=== PATIENT | male | born 1970 | race Caucasian/White ===

== ENCOUNTER 2023-03-01 16:03 | Inpatient (IN) ==
[2023-03-01] MEDS ORDERED: ASPIRIN CHEW 324 MG PO STA (16:33)
--- NOTE | 2023-03-01 16:44 | XRay Report ---
XR chest 1V portable CLINICAL HISTORY: Chest pain, nonspecific COMPARISON STUDY: No previous studies for comparison. FINDINGS: Lung volumes are normal. No consolidation is identified. A 9 mm nodular density projects ov er the right lower lung. There is no pneumothorax or pleural effusion. Cardiac size is normal. Medias tinal contours are normal. There is no evidence for pulmonary edema. IMPRESSION: 1. No acute cardiopulmonary findings. 2. Equivocal 9 mm right lower lung nodule. Nonemergent chest CT is recommended. ACT 112: Positive. There are findings on this exam that require communication between the performing entity and the patient following Patient Test Result Information Act ([place] Act 112) guidelines. Electronically signed by: Anurag Wahl M.D. 03/01/2023 4:42 PM
[2023-03-01 16:47] LABS: Basophils # (auto) 0.03 K/uL (0-0.2); Basophils % (auto) 0.3 %; Eosinophils # (auto) 0.12 K/uL (0-0.50); Eosinophils % (auto) 1.1 %; Hematocrit (blood only) 33.1 % (42.0-52.0); Hemoglobin 12.2 g/dl (14.0-18.0); Immature Granulocytes # (auto) 0.05 K/uL (0.01-0.20); Immature Granulocytes % (auto) 0.5 %; Lymphocytes # (auto) 0.97 K/uL (1.2-3.4); Lymphocytes % (auto) 8.8 %; Mean Corpuscular Hemoglobin 30.5 pg (25.0-34.0); Mean Corpuscular Hgb Conc 36.9 g/dL (32.0-36.0); Mean Corpuscular Volume 82.8 fL (80.0-100.0); Mean Platelet Volume 10.5 fL (9.4-12.4); Monocytes # (auto) 0.64 K/uL (0.11-0.59); Monocytes % (auto) 5.8 %; Neutrophils # (auto) 9.23 K/uL (1.40-6.50); Neutrophils % (auto) 83.5 %; Platelet Count 194 K/uL (130-400); RDW Coefficient of Variation 11.9 % (11.5-14.5); RDW Standard Deviation 35.7 fL (36.4-46.3); White Blood Count 11.04 K/ul (4.8-10.8)
[2023-03-01 17:04] LABS: Anion Gap 11 (3-11); BUN Creatinine Ratio 18.3 (10-20); Blood Urea Nitrogen 26 mg/dl (6-23); Carbon Dioxide 21 mmol/L (21-32); Chloride 93 mmol/L (98-107); Est GFR (African American) 64.9 ml/min; Glucose 261 mg/dl (70-99(Fasting)); Lipase 49 U/L (11-82); Potassium 4.2 mmol/L (3.5-5.1); Sodium 125 mmol/L (136-145)
[2023-03-01 17:11] LABS: Troponin I High Sensitivity 3.5 pg/ml (0-20)
[2023-03-01 17:16] LABS: Partial Thromboplastin Ratio 0.9; Partial Thromboplastin Time 23.7 Seconds (21.0-31.0); Prothrombin Time 10.8 Seconds (9.0-12.0)
[2023-03-01] MEDS: SODIUM CHLORIDE 0.9% 1000ML 1,000 ML IV SCH (17:51)
--- NOTE | 2023-03-01 19:06 | History & Physical Report ---
Date of Service March 01, 2023 Assessment & Plan (1) Pre-syncope: Plan: Suspect as a side effect of dehydration on multiple antihypertensives + hyponatremia Start orthostatics qshift in AM (2) Hyponatremia: Plan: Suspect secondary to HCTZ +/- spironolactone given hypotension at scene. Will d/c HCTZ and reduce spironolactone. However he was on these in October (but on a smaller dose) with normal sodium therefore raising the possibility of alternative etiology. Unable to rule out SIADH given urine osm/Na will be high in either condition and given CXR with equivocal lung nodule will get CT chest here to make sure there is no lung mass causing SIADH. 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 (3) Hypertension: Plan: Continue diltiazem Continue lisinopril HCTZ and spironolactone as above (4) T2DM (type 2 diabetes mellitus): Plan: HbA1C Dec 8.5 Working to get this down with diet so keeping on Janmet Continue Janumet Novolog for correction only: --Goal BSG Range: Low 110 mg/dL, High 140 mg/dL --Correction Factor: 45 mg/dL/unit No carb ratio --BSGs ACHS if eating, q6h if npo Plan VTE Prophylaxis - low risk Diet - regular Disposition - admit to med/tele Admission and Anticipated Discharge Date Admission Date: March 01, 2023 History of Present Illness Chief Complaint: Presyncope Primary Care Provider: NO PCP Jose Phelps is a 52 year old male who presents to the ER with lightheadedness after a long bike ride. He is from [facility], here visiting his son. This was his first bike ride of the season and he thinks he became dehydrated while riding. During the ride he felt more short of breath than usual even at the end of the ride. When they stopped to go to a restaurant his stomach felt upset and he couldn't eat. He had to sit down outside as he started feeling lightheaded. BP 85/50, glucose 250 Recently he has been going up on his blood pressure medication doubling his dose of lisinopril/HCTZ and spironolactone in November. Baseline in October Cr 1.21, BUN 23, Na 139. In the ER sodium level was noted to be low at 125. He has never had problems with his sodium level previously. He was therefore referred to medicine for admission and ongoing management of this. Allergies Allergy/AdvReac Type Severity Reaction Status Date / Time propoxyphene Allergy Hives on Verified 03/01/23 19:33 [facility] arms Home Medications Medication Instructions Recorded Confirmed Type aspirin 81 mg tablet,delayed 81 mg PO DAILY 03/01/23 03/01/23 History release diltiazem HCl 300 mg 300 mg PO DAILY 03/01/23 03/01/23 History capsule,extended release 24 hr lisinopril 20 1 tab PO BID 03/01/23 03/01/23 History mg-hydrochlorothiazide 12.5 mg tablet multivitamin 1 tab PO DAILY 03/01/23 03/01/23 History potassium chloride 20 mEq 20 meq PO DAILY 03/01/23 03/01/23 History tablet,extended release(part/cryst) pravastatin 40 mg tablet 40 mg PO DAILY 03/01/23 03/01/23 History sitagliptin phosphate 50 1 tab PO BID 03/01/23 03/01/23 History mg-metformin 1,000 mg tablet (Janumet) spironolactone 50 mg tablet 50 mg PO DAILY 03/01/23 03/01/23 History Past Med/Surg History Medical History Hypertension T2DM (type 2 diabetes mellitus) Surgical History History of shoulder surgery Reduction for dislocated shoulder Social History Smoking Status: Never smoker Hx Alcohol Use: No Hx Substance Use: No Preferred Language: Belarusian 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 Beliefs That Will Affect Care: None Current Living Situation: Spouse Feels Safe at Home: Yes Safety Concerns: Feels Safe At This Time Assistive Devices: None Review of Systems Review of Systems: All systems reviewed & are unremarkable except as noted in HPI & below Physical Exam Constitutional: WD/WN, vitals as above Eyes: PERRL, conjunctivae normal, anicteric sclerae ENMT: external ear and nose normal, oropharynx normal Respiratory: normal respiratory effort, lungs clear to auscultation Cardiovascular: RRR, no murmur, no edema Gastrointestinal (Abdomen): normal bowel sounds, soft, nontender, no hepatosplenomegaly Musculoskeletal: no cyanosis or clubbing, extremities motor strength 5/5 Skin: no rashes, warm and dry Neurologic: moves all extremities and awake; not confused Psychiatric: A+Ox3, euthymic affect Results & Data Results & Data Vital Signs (Past 12 Hours) Vital Signs Temp Pulse Resp BP Pulse Ox 03/01/23 16:35 74 03/01/23 16:34 73 17 98 03/01/23 16:30 74 13 98 03/01/23 16:20 79 15 99 03/01/23 16:11 36.8 C 15 99 03/01/23 16:11 36.8 C 70 15 106/66 99 Laboratory Results Abnormal lab results 03/01/23 03/01/23 03/01/23 Range/Units 16:18 16:18 16:49 WBC 11.04 H (4.8-10.8) K/ul RBC 4.00 L (4.70-6.10) M/uL Hgb 12.2 L (14.0-18.0) g/dl Hct 33.1 L (42.0-52.0) % MCHC 36.9 H (32.0-36.0) g/dL RDW Std Deviation 35.7 L (36.4-46.3) fL Neut # (Auto) 9.23 H (1.40-6.50) K/uL Lymph # (Auto) 0.97 L (1.2-3.4) K/uL Carter # (Auto) 0.64 H (0.11-0.59) K/uL Sodium 125 L (136-145) mmol/L Chloride 93 L (98-107) mmol/L BUN 26 H (6-23) mg/dl Creatinine 1.42 H (0.6-1.4) mg/dl Glucose 261 H (70-99(Fasting)) mg/dl POC Glucose 268 H (70-99) mg/dl Diagnostic Findings XR chest 1V portable CLINICAL HISTORY: Chest pain, nonspecific COMPARISON STUDY: No previous studies for comparison. FINDINGS: Lung volumes are normal. No consolidation is identified. A 9 mm nodular density projects over the right lower lung. There is no pneumothorax or pleural effusion. Cardiac size is normal. Mediastinal contours are normal. There is no evidence for pulmonary edema. IMPRESSION: 1. No acute cardiopulmonary findings. 2. Equivocal 9 mm right lower lung nodule. Nonemergent chest CT is recommended. Medications Administered ER Medications Given: NSS @ 125 ml/hr Aspirin 324mg PO ECG Indication: toxicologic (hyponatremia) Rate (beats per minute): 68 Rhythm: normal sinus Findings: no acute ischemic change Comparison ECG Date: no prior available Code Status & VTE Plan Code Status Full VTE Prophylaxis Plan VTE Prophylaxis will be ordered: No PG Care Time/CCT Total # of Minutes Spent Total Time Spent with Patient: Total time spent is greater than 50% in coordination of care (as documented) at patient's floor/unit and/or counseling patient: Coding Level of Care Code 61866 INT INP/OBS CARE 3/75MIN Diagnoses Pre-syncope R55 Hyponatremia E87.1 Hypertension I10 T2DM (type 2 diabetes mellitus) E11.9
[2023-03-01] MEDS ORDERED: OPTIRAY 350 100ml IV ONE (20:42)
[2023-03-01] MEDS ORDERED: GLUCOSE 10 TAB/TUBE PO PRN (21:13)
[2023-03-01] MEDS ORDERED: GLUCOSE 40% GEL 15 GM TUBE PO PRN (21:13)
[2023-03-01] MEDS ORDERED: DEXTROSE 50% 50 ML SYRINGE IV PRN (21:13)
[2023-03-01] MEDS ORDERED: ACETAMINOPHEN 325 MG TAB PO PRN (21:13)
[2023-03-01] MEDS ORDERED: CARBOHYDRATES FOR HYPOGLYCEMIA PO PRN (21:13)
[2023-03-01] MEDS ORDERED: GLUCAGON FOR INJ 1 MG VIAL SQ PRN (21:13)
[2023-03-01] MEDS: INSULIN ASPART PER UNIT CHARGE SC SCH (21:32)
--- NOTE | 2023-03-01 22:01 | CT Scan Report ---
Exam(s): CT CHEST With Contrast EXAM: CT Chest With Intravenous Contrast CLINICAL HISTORY: Reason for exam: f/u lung nodule on CT, hyponatremia. TECHNIQUE: Axial computed tomography images of the chest with intravenous contrast. CTDI is 13.04 mGy and DLP is 490.26 mGy-cm. Automated exposure control was utilized for the study. A dose lowering technique was utilized adhering to the principles of ALARA. CONTRAST: Contrast must be dictated COMPARISON: No relevant prior studies available. FINDINGS: Lungs: Unremarkable. No mass. No consolidation. Pleural space: Unremarkable. No pneumothorax. No significant effusion. Heart: Unremarkable. No cardiomegaly. No significant pericardial effusion. No significant coronary artery calcifications. Bones/joints: Unremarkable. No acute fracture. No dislocation. Soft tissues: Unremarkable. Vasculature: Unremarkable. No thoracic aortic aneurysm. Lymph nodes: Unremarkable. No enlarged lymph nodes. IMPRESSION: Normal chest CT. Electronically signed by: Latrell Keyes MD 03/01/23 21:59 PM
[2023-03-01] MEDS ORDERED: SODIUM CHLORIDE 1 GM TABLET PO SCH (22:30)
--- NOTE | 2023-03-01 23:08 | Emergency Department Note ---
History of Present Illness General Chief complaint: Weakness Time Seen by Provider: 03/01/23 16:18 History of Present Illness Provider complaint: Weakness near syncope Onset (ago): day(s) 1 52-year-old male presents emergency department for weakness. Patient reports he went for a bike ride with his family today and while on the bike ride he began feeling very weak. He reports shortness of breath. No chest pain. Patient reports near syncope but no true syncopal episodes. No falls. Patient is not on any blood thinners. Home Medications Medication Instructions Recorded Confirmed Type aspirin 81 mg tablet,delayed 81 mg PO DAILY 03/01/23 03/01/23 History release diltiazem HCl 300 mg 300 mg PO DAILY 03/01/23 03/01/23 History capsule,extended release 24 hr lisinopril 20 1 tab PO BID 03/01/23 03/01/23 History mg-hydrochlorothiazide 12.5 mg tablet multivitamin 1 tab PO DAILY 03/01/23 03/01/23 History potassium chloride 20 mEq 20 meq PO DAILY 03/01/23 03/01/23 History tablet,extended release(part/cryst) pravastatin 40 mg tablet 40 mg PO DAILY 03/01/23 03/01/23 History sitagliptin phosphate 50 1 tab PO BID 03/01/23 03/01/23 History mg-metformin 1,000 mg tablet (Janumet) spironolactone 50 mg tablet 50 mg PO DAILY 03/01/23 03/01/23 History Allergies Allergy/AdvReac Type Severity Reaction Status Date / Time propoxyphene Allergy Hives on Verified 03/01/23 19:33 [From [facility]] arms Past Med/Surg History Medical History Hypertension T2DM (type 2 diabetes mellitus) Surgical History History of shoulder surgery Reduction for dislocated shoulder Social History Smoking Status: Never smoker Hx Alcohol Use: No Hx Substance Use: No Preferred Language: Cymraes Communication Ability: 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 Beliefs That Will Affect Care: None Current Living Situation: Spouse Feels Safe at Home: Yes Safety Concerns: Feels Safe At This Time Assistive Devices: None Physical Exam Vital Signs Vital Signs - 24 hr 03/01/23 16:11 03/01/23 16:11 03/01/23 16:20 Temperature 36.8 C 36.8 C Temperature Source Oral Oral Pulse Rate 70 79 Pulse Rate from SpO2 Sensor 77 Respiratory Rate 15 15 15 Blood Pressure 106/66 Blood Pressure Mean 79 Pulse Oximetry 99 99 99 Sepsis Recent Fever Within 48 Hours No Sepsis New/Unexplained Change in Mental Status N/A Sepsis Action Taken by Nursing No Action Required 03/01/23 16:30 03/01/23 16:34 03/01/23 16:35 Temperature Temperature Source Pulse Rate 74 73 74 Pulse Rate from SpO2 Sensor 74 Respiratory Rate 13 17 Blood Pressure Blood Pressure Mean Pulse Oximetry 98 98 Sepsis Recent Fever Within 48 Hours Sepsis New/Unexplained Change in Mental Status Sepsis Action Taken by Nursing 03/01/23 17:00 03/01/23 17:30 03/01/23 18:00 Temperature Temperature Source Pulse Rate 75 75 99 H Pulse Rate from SpO2 Sensor 74 80 Respiratory Rate 12 19 15 Blood Pressure Blood Pressure Mean Pulse Oximetry 98 98 Sepsis Recent Fever Within 48 Hours Sepsis New/Unexplained Change in Mental Status Sepsis Action Taken by Nursing 03/01/23 18:10 03/01/23 18:10 03/01/23 18:30 Temperature Temperature Source Pulse Rate 75 Pulse Rate from SpO2 Sensor 74 Respiratory Rate 14 Blood Pressure 124/77 122/72 Blood Pressure Mean 92 88 Pulse Oximetry 99 Sepsis Recent Fever Within 48 Hours Sepsis New/Unexplained Change in Mental Status Sepsis Action Taken by Nursing 03/01/23 18:30 03/01/23 19:00 03/01/23 19:00 Temperature Temperature Source Pulse Rate 76 79 Pulse Rate from SpO2 Sensor 76 79 Respiratory Rate 14 15 Blood Pressure 122/75 Blood Pressure Mean 90 Pulse Oximetry 98 96 Sepsis Recent Fever Within 48 Hours Sepsis New/Unexplained Change in Mental Status Sepsis Action Taken by Nursing Physical Exam GENERAL: oriented to person, place, and time. appears well-developed and well- nourished. HENT: Exam performed. - Head: Normocephalic and atraumatic. EYES: Conjunctivae and EOM are normal. Right eye exhibits no discharge. Left eye exhibits no discharge. No scleral icterus. NECK: Normal range of motion. Neck supple. No JVD present. CV: Normal rate, regular rhythm, normal heart sounds and intact distal pulses. There is no peripheral edema. Palpable radial pulses bue. PULM/CHEST: Effort normal and breath sounds normal. No respiratory distress. No stridor. no wheezes. no rales. ABD: The abdomen is soft. There is no tenderness. NEURO: Motor and sensation grossly intact. SKIN: Skin is warm and dry. He is not diaphoretic. PSYCH: normal mood and affect. Behavior is normal. Judgment and thought content normal. Course Course 1618: The patient was evaluated in room B4. A complete history and physical exam was performed Cardiac monitoring: An order was placed for continuous cardiac monitoring. The monitor shows a rate of 90 with sinus rhythm interpreted by me 1800: Vital signs stable. Labs show sodium of 126 otherwise unremarkable troponin and chest x-ray are negative. Patient reports he has had several changes to his medications for his blood pressure recently and has been trying to eat a low-salt diet for his blood pressure. Is thought that the patient weakness could be due to his hyponatremia. [facility] Patient will be given hydration with normal saline to improve his sodium. Patient has had no seizure-like activity no need for hypertonic saline at this time. Dr. Stearns's team will be notified. Administered Medications Sodium Chloride (Nss 1000ml) 1,000 mls @ 125 mls/hr IV .Q8H COBY Stop: 03/31/23 17:44 Last Infusion: 03/01/23 21:30 Dose: 125 mls/hr Documented By: Infusion: 03/01/23 20:28 Dose: 0 mls/hr Documented By: Admin: 03/01/23 17:51 Dose: 125 mls/hr Documented By: CHRISTINA Insulin Aspart (Insulin Aspart Per Unit Charge) 0 units SC ACHS COBY Stop: 03/31/23 21:12 Last Admin: 03/01/23 21:32 Dose: Not Given Documented By: GINA Miscellaneous (Janumet~Order Awaiting Action) 1 each N/A QS COBY Stop: 03/31/23 21:29 Last Admin: 03/01/23 21:30 Dose: Not Given Documented By: GINA Discontinued Medications Aspirin (Aspirin Chew 324 Mg) 324 mg PO NOW STA Stop: 03/01/23 16:34 Last Admin: 03/01/23 16:46 Dose: 324 mg Documented By: CHRISTINA Ioversol (Optiray 350 100ml) 86 ml IV ONCE ONE Stop: 03/01/23 20:43 Last Admin: 03/01/23 20:42 Dose: 86 ml Documented By: CHIOMA Non-Formulary Medication (Sitagliptin Phos-Metformin [Janumet]) 1 tab PO BID COBY Stop: 03/31/23 21:12 Last Admin: 03/01/23 21:33 Dose: Not Given Documented By: GINA Medical Decision Making Laboratory Data Attestation: I reviewed the patient's lab results. 03/01/23 16:18 03/01/23 22:32 Lab Results 03/01/23 03/01/23 03/01/23 Range/Units 16:18 16:18 16:18 WBC 11.04 H (4.8-10.8) K/ul RBC 4.00 L (4.70-6.10) M/uL Hgb 12.2 L (14.0-18.0) g/dl Hct 33.1 L (42.0-52.0) % MCV 82.8 (80.0-100.0) fL MCH 30.5 (25.0-34.0) pg MCHC 36.9 H (32.0-36.0) g/dL RDW Std Deviation 35.7 L (36.4-46.3) fL RDW Coeff of Shalom 11.9 (11.5-14.5) % Plt Count 194 (130-400) K/uL MPV 10.5 (9.4-12.4) fL Immature Gran % (Auto) 0.5 % Neut % (Auto) 83.5 % Lymph % (Auto) 8.8 % Caroline % (Auto) 5.8 % Eos % (Auto) 1.1 % Baso % (Auto) 0.3 % Neut # (Auto) 9.23 H (1.40-6.50) K/uL Lymph # (Auto) 0.97 L (1.2-3.4) K/uL Caroline # (Auto) 0.64 H (0.11-0.59) K/uL Eos # (Auto) 0.12 (0-0.50) K/uL Baso # (Auto) 0.03 (0-0.2) K/uL Immature Gran # (Auto) 0.05 (0.01-0.20) K/uL PT 10.8 (9.0-12.0) Seconds INR 1.0 (0.9-1.1) APTT 23.7 (21.0-31.0) Seconds PTT Ratio 0.9 Sodium 125 L (136-145) mmol/L Potassium 4.2 (3.5-5.1) mmol/L Chloride 93 L (98-107) mmol/L Carbon Dioxide 21 (21-32) mmol/L Anion Gap 11 (3-11) BUN 26 H (6-23) mg/dl Creatinine 1.42 H (0.6-1.4) mg/dl Est Cr Clr Drug Dosing Not Reportable Est GFR ( Amer) 64.9 ml/min Est GFR (Non-Af Amer) 56.0 ml/min BUN/Creatinine Ratio 18.3 (10-20) Glucose 261 H (70-99(Fasting)) mg/dl POC Glucose (70-99) mg/dl Osmolality (280-300) mOsm/kg Calcium 9.0 (8.6-10.3) mg/dl Troponin I High Sens 3.5 (0-20) pg/ml Lipase 49 (11-82) U/L SARS-CoV-2, RNA, NAAT (NEGATIVE) 03/01/23 03/01/23 03/01/23 Range/Units 16:37 16:48 16:49 WBC (4.8-10.8) K/ul RBC (4.70-6.10) M/uL Hgb (14.0-18.0) g/dl Hct (42.0-52.0) % MCV (80.0-100.0) fL MCH (25.0-34.0) pg MCHC (32.0-36.0) g/dL RDW Std Deviation (36.4-46.3) fL RDW Coeff of Shalom (11.5-14.5) % Plt Count (130-400) K/uL MPV (9.4-12.4) fL Immature Gran % (Auto) % Neut % (Auto) % Lymph % (Auto) % Caroline % (Auto) % Eos % (Auto) % Baso % (Auto) % Neut # (Auto) (1.40-6.50) K/uL Lymph # (Auto) (1.2-3.4) K/uL Caroline # (Auto) (0.11-0.59) K/uL Eos # (Auto) (0-0.50) K/uL Baso # (Auto) (0-0.2) K/uL Immature Gran # (Auto) (0.01-0.20) K/uL PT (9.0-12.0) Seconds INR (0.9-1.1) APTT (21.0-31.0) Seconds PTT Ratio Sodium (136-145) mmol/L Potassium (3.5-5.1) mmol/L Chloride (98-107) mmol/L Carbon Dioxide (21-32) mmol/L Anion Gap (3-11) BUN (6-23) mg/dl Creatinine (0.6-1.4) mg/dl Est Cr Clr Drug Dosing Est GFR ( Amer) ml/min Est GFR (Non-Af Amer) ml/min BUN/Creatinine Ratio (10-20) Glucose (70-99(Fasting)) mg/dl POC Glucose 268 H (70-99) mg/dl Osmolality 284 (280-300) mOsm/kg Calcium (8.6-10.3) mg/dl Troponin I High Sens (0-20) pg/ml Lipase (11-82) U/L SARS-CoV-2, RNA, NAAT NEGATIVE (NEGATIVE) Imaging Data Attestation: I personally reviewed and interpreted this imaging study as follows: My Impression: Chest x-ray negative. Airway clear. No pneumothorax. No consolidation. No cardiomegaly or cephalization.. No free air under the diaphragm. No fractures of the skeletal structures. Radiologist's Impression: Chest X-Ray 03/01/23 16:33 XR chest 1V portable CLINICAL HISTORY: Chest pain, nonspecific COMPARISON STUDY: No previous studies for comparison. FINDINGS: Lung volumes are normal. No consolidation is identified. A 9 mm nodular density projects over the right lower lung. There is no pneumothorax or pleural effusion. Cardiac size is normal. Mediastinal contours are normal. There is no evidence for pulmonary edema. IMPRESSION: 1. No acute cardiopulmonary findings. 2. Equivocal 9 mm right lower lung nodule. Nonemergent chest CT is recommended. ACT 112: Positive. There are findings on this exam that require communication between the performing entity and the patient following Patient Test Result Information Act ([place] Act 112) guidelines. Electronically signed by: Anurag Wahl M.D. 03/01/2023 4:42 PM ECG Data Indication: + SOB/dyspnea Rate (beats per minute): 68 Rhythm: + normal sinus ECG Intervals/blocks: + Normal QRS, + Normal CA and + Normal QT-c ECG ST segments: + Normal ST segments [facility] Narrative 1618: The patient was evaluated in room B4. A complete history and physical exam was performed Cardiac monitoring: An order was placed for continuous cardiac monitoring. The monitor shows a rate of 90 with sinus rhythm interpreted by ks 1800: Vital signs stable. Labs show sodium of 126 otherwise unremarkable troponin and chest x-ray are negative. Patient reports he has had several ch anges to his medications for his blood pressure recently and has been trying to eat a low-salt diet for his blood pressure. Is thought that the patient weakness could be due to his hyponatremia. [facility] Patient will be given hydration with normal saline to improve his sodium. Patient has had no seizure-like activity no need for hypertonic saline at this time. Dr. Stearns's team will be notified. Impression & Plan Hyponatremia Discharge Plan Visit Data Chief Complaint: Weakness ED Provider: Santhosh Mason Discharge Problem: Hyponatremia Patient Disposition: Admitted As Inpatient Discharge Instructions Interventions: ED Discharge Assessment Last Done: 03/01/23 20:22
[2023-03-02] MEDS: SODIUM CHLORIDE 0.9% 1000ML 1,000 ML IV SCH (02:52)
[2023-03-02 07:33] LABS: Basophils # (auto) 0.02 K/uL (0-0.2); Basophils % (auto) 0.3 %; Eosinophils # (auto) 0.13 K/uL (0-0.50); Hematocrit (blood only) 32.1 % (42.0-52.0); Hemoglobin 11.8 g/dl (14.0-18.0); Immature Granulocytes # (auto) 0.02 K/uL (0.01-0.20); Immature Granulocytes % (auto) 0.3 %; Lymphocytes # (auto) 1.13 K/uL (1.2-3.4); Lymphocytes % (auto) 17.2 %; Mean Corpuscular Hemoglobin 30.4 pg (25.0-34.0); Mean Corpuscular Hgb Conc 36.8 g/dL (32.0-36.0); Mean Corpuscular Volume 82.7 fL (80.0-100.0); Mean Platelet Volume 10.1 fL (9.4-12.4); Monocytes # (auto) 0.61 K/uL (0.11-0.59); Monocytes % (auto) 9.3 %; Neutrophils # (auto) 4.66 K/uL (1.40-6.50); Neutrophils % (auto) 70.9 %; Platelet Count 199 K/uL (130-400); RDW Coefficient of Variation 11.9 % (11.5-14.5); Red Blood Count 3.88 M/uL (4.70-6.10); White Blood Count 6.57 K/ul (4.8-10.8)
[2023-03-02 07:59] LABS: BUN Creatinine Ratio 16.5 (10-20); Calcium 8.2 mg/dl (8.6-10.3); Creatinine Clr Calc Pharmacy 93.2 ml/min; Est GFR (African American) 89.3 ml/min; Est GFR (Non-African American) 77.1 ml/min; Potassium 4.6 mmol/L (3.5-5.1)
--- NOTE | 2023-03-02 08:17 | Electrocardiogram Report ---
Test Reason : Blood Pressure : / mmHG Vent. Rate : 068 BPM Atrial Rate : 068 BPM P-R Int : 184 ms QRS Dur : 116 ms QT Int : 414 ms P-R-T Axes : 048 036 015 degrees QTc Int : 440 ms Normal sinus rhythm Normal ECG No previous ECGs available Confirmed by Floyd Medrano ([id number]) on 03/02/2023 8:17:24 AM Referred By: REFERRED SELF Confirmed By:Flody Medrano
[2023-03-02] MEDS: INSULIN ASPART PER UNIT CHARGE SC SCH (08:18)
[2023-03-02] MEDS ORDERED: dilTIAZem HCL 300 MG CAPCR PO SCH (09:00)
[2023-03-02] MEDS ORDERED: PRAVASTATIN SOD 40 MG TAB PO SCH (09:00)
[2023-03-02] MEDS ORDERED: lisinopril 40 MG TAB PO SCH (09:00)
[2023-03-02] MEDS ORDERED: ASPIRIN 81 MG ECTAB PO SCH (09:00)
[2023-03-02] MEDS ORDERED: SPIRONOLACTONE 25 MG TAB PO SCH (09:00)
--- NOTE | 2023-03-02 11:05 | Discharge Summary ---
Date of Service March 02, 2023 Admission HPI Per Admitting Provider Jose Phelps is a 52 year old male who presents to the ER with lightheadedness after a long bike ride. He is from [facility], here visiting his son. This was his first bike ride of the season and he thinks he became dehydrated while riding. During the ride he felt more short of breath than usual even at the end of the ride. When they stopped to go to a restaurant his stomach felt upset and he couldn't eat. He had to sit down outside as he started feeling lightheaded. BP 85/50, glucose 250 Recently he has been going up on his blood pressure medication doubling his dose of lisinopril/HCTZ and spironolactone in November. Baseline in October Cr 1.21, BUN 23, Na 139. In the ER sodium level was noted to be low at 125. He has never had problems with his sodium level previously. He was therefore referred to medicine for admission and ongoing management of this. Principal Diagnosis Near syncope, hyponatremia, acute kidney injury Discharge Exam General-alert and oriented x3, no fevers, no chills HEENT-head atraumatic and normocephalic, pupils equal and reactive to light, extraocular muscles intact Neck-no lymphadenopathy or thyromegaly, trachea midline Chest-clear to auscultation percussion. No rales wheezing or rhonchi Cardiac-regular rate and rhythm, normal S1 and S2 Abdomen-normal bowel sounds, nontender, no hepatosplenomegaly Extremities-no cyanosis, clubbing, or edema Neuro-cranial nerves II through XII intact, motor and sensory function within normal limits, strength symmetrical , no focal deficits Psych-normal affect, normal mood Discharge Data Allergies Allergy/AdvReac Type Severity Reaction Status Date / Time propoxyphene Allergy Hives on Verified 03/01/23 19:33 [From Amanda] arms Consultations 03/01/23 18:08 ED Decision to Admit Stat Ordered Studies 03/01/23 20:22 CT chest diagnostic w con Routine Hospital Course (1) Pre-syncope: Suspect as a side effect of dehydration on multiple antihypertensives and diuretics. Resolved with IV fluid rehydration (2) Hyponatremia: Normal osmolar. Probably diuretic induced. Improved with IV fluids . No SIADH (3) Hypertension: Stable. Diuretics eld while hospitalized. Will discontinue spironolactone ind efinitely. (4) T2DM (type 2 diabetes mellitus): ADA diet. Continue current medical management. Sliding scale coverage as needed Plan Discharge to home today, March 02. Spironolactone has been discontinued Total Time Total Time Spent Total Time Spent (In Minutes): 40 minutes Discharge Plan Discharge Items Patient Disposition: Home - Self-Care Reason For Visit: hyponatremia, presyncope Discharge Diagnosis: Near syncope, acute kidney injury, normal osmolar hyponatremia Activity: Resume your previous activity Non-emergency contact: Primary Care Provider Call non-emergency contact if: you have any medication questions Follow-up/Referrals: PCP,NO [Primary Care Provider] - Diet: Carb Consistent or DM2 and Heart Healthy Addtl Attending Provider Instructions: Spironolactone has been discontinued Pending Studies at Discharge: No Stand-Alone Forms: My [employer], Smoking Cessation Medications and DC Order Prescriptions: Continued pravastatin 40 mg tablet 40 mg PO DAILY potassium chloride 20 mEq tablet,ER particles/crystals 20 meq PO DAILY Janumet 50-1,000 mg tablet 1 tab PO BID multivitamin Tablet 1 tab PO DAILY aspirin [Aspir-81] 81 mg Tablet,Delayed Release (Dr/Ec) 81 mg PO DAILY diltiazem HCl 300 mg capsule,extended release 24hr 300 mg PO DAILY lisinopril-hydrochlorothiazide 20-12.5 mg tablet 1 tab PO BID Discontinued spironolactone 50 mg tablet 50 mg PO DAILY Discharge Orders: Discharge Order (Routine); Ordered 03/02/23 Ordered By: Alexei Moody Admission Data Admit Date/Time: 03/01/23 19:30 Attending Provider: Alexei Moody Admit Provider: Nir Stearns Primary Care Provider: PCP,NO Other Providers: Nir Stearns Coding Level of Care Code 53035 INP/OBS DISCH >30 MIN Diagnoses Pre-syncope R55 Hyponatremia E87.1 Hypertension I10 T2DM (type 2 diabetes mellitus) E11.9
== END 2023-03-02 11:33 | disposition home or self-care (01) | DRG 312 ==
LOC: ED 16:03 → 2W 19:30 → SUATTDRO 19:30 → 2W 20:22